=== PATIENT | male | born 1985 | race Caucasian/White ===

== ENCOUNTER 2017-03-25 00:26 | Emergency (ER) | payer MEDICAID, OTHER, SELFPAY ==
[2017-03-25 01:20] LABS: CHLORIDE,CL 99 mmol/L (101-111); SODIUM,NA 136 mmol/L (135-145)
[2017-03-25 02:22] VITALS: BP 110/74
--- NOTE | 2017-03-25 02:42 | EDM.PDOC ---
ED HPI GENERAL MEDICAL PROBLEM - General Chief Complaint: Chest Pain Stated Complaint: CHEST PAIN, DIZZY, NAUSEOUS [id number] Time Seen by Provider: 03/25/17 00:45 Source of Information: Reports: Patient History Limitations: Reports: No Limitations - History of Present Illness INITIAL COMMENTS - FREE TEXT/NARRATIVE: c/o "chest pain" pointing epigastric area with radiation to left arm. C/o left arm numbness. Described it feeling colder than right Onset: Today Quality: Reports: Ache, Stabbing Severity: Moderate Associated Symptoms: Reports: Chest Pain. Denies: Cough, Diaphoresis Chest Pain Score (Numeric/FACES): 0 - Related Data Allergies Allergy/AdvReac Type Severity Reaction Status Date / Time sulfamethoxazole Allergy Cannot Verified 03/25/17 00:50 [From Bactrim] Remember trimethoprim [From Bactrim] Allergy Cannot Verified 03/25/17 00:50 Remember Home Meds: Home Meds Ranitidine HCl [Zantac 75] 75 mg PO ASDIRECTED 03/25/17 [History] guaiFENesin/Ephedrine HCl [Primatene Asthma] 1 tab PO ASDIRECTED PRN 03/25/17 [ History] Past Medical History - Past Health History Medical/Surgical History: Denies Medical/Surgical History Respiratory History: Reports: Asthma Gastrointestinal History: Reports: GERD Endocrine/Metabolic History: Reports: Obesity/BMI 30+ - Past Surgical History GI Surgical History: Reports: Appendectomy Social & Family History - Family History Family Medical History: Noncontributory - Tobacco Use Smoking Status *Q: Current Every Day Smoker Years of Tobacco use: 10 Packs/Tins Daily: 1.5 - Caffeine Use Caffeine Use: Reports: Soda - Alcohol Use Days Per Week of Alcohol Use: 0 - Recreational Drug Use Recreational Drug Use: Yes Drug Use in Last 12 Months: Yes Recreational Drug Type: Reports: Marijuana/Hashish Recreational Drug Use Frequency: Monthly - Living Situation & Occupation Living situation: Reports: , with Family Occupation: Employed ED ROS GENERAL - Review of Systems Review Of Systems: ROS reveals no pertinent complaints other than HPI. Constitutional: Denies: Diaphoresis HEENT: Reports: No Symptoms Respiratory: Reports: No Symptoms Cardiovascular: Reports: Chest Pain, Dyspnea on Exertion GI/Abdominal: Reports: Nausea : Reports: No Symptoms Musculoskeletal: Reports: No Symptoms Skin: Reports: No Symptoms Neurological: Reports: Paresthesia (c/o left arm feeling cold) ED EXAM, GENERAL - Physical Exam Exam: See Below Exam Limited By: No Limitations General Appearance: Alert, Anxious, Obese (morbid) Eye Exam: Bilateral Eye: EOMI Ears: Normal External Exam Nose: Normal Inspection Throat/Mouth: Normal Inspection, Normal Lips, Normal Voice Head: Atraumatic, Normocephalic Respiratory/Chest: No Respiratory Distress, Wheezing (fine expiratory on right clear with deep breath) Cardiovascular: Normal Peripheral Pulses, Regular Rate, Rhythm Peripheral Pulses: 2+: Brachial (L), Brachial (R), Radial (L), Radial (R) GI/Abdominal: Normal Bowel Sounds, Soft, Tender (epigastric) Extremities: Normal Inspection, Normal Range of Motion, Non-Tender. No: Arm Pain, Increased Warmth, Mottled, Pallor, Redness Neurological: Alert, Oriented, CN II-XII Intact, Normal Cognition, Normal Reflexes, No Motor/Sensory Deficits. No: Sensory/Motor Deficit Psychiatric: Anxious Skin Exam: Warm, Dry, Intact, Normal Color Course - Vital Signs Last Recorded V/S: Last Vital Signs Temp 97.3 F 03/25/17 02:21 Pulse 100 03/25/17 02:21 Resp 14 03/25/17 02:21 BP 110/74 03/25/17 02:21 Pulse Ox 95 03/25/17 01:40 - Orders/Labs/Meds Labs: Laboratory Tests 03/25/17 03/25/17 Range/Units 00:35 00:35 WBC 10.9 H (5.0-10.0) 10^3/uL RBC 5.14 (4.6-6.2) 10^6/uL Hgb 16.0 (14.0-18.0) g/dL Hct 46.8 (40.0-54.0) % MCV 91.1 (80-100) fL MCH 31.1 (27.0-34.0) pg MCHC 34.2 (33.0-35.0) g/dL Plt Count 237 D (150-450) 10^3/uL Neut % (Auto) 59.5 (42.2-75.2) % Lymph % (Auto) 27.1 (20.5-50.1) % [place] % (Auto) 10.5 H (2-8) % Eos % (Auto) 2.5 (1.0-3.0) % Baso % (Auto) 0.4 (0.0-1.0) % Sodium 136 (135-145) mmol/L Potassium 4.4 (3.6-5.0) mmol/L Chloride 99 L (101-111) mmol/L Carbon Dioxide 27.0 (21.0-31.0) mmol/L Anion Gap 14.4 BUN 18 (7-18) mg/dL Creatinine 0.9 (0.6-1.3) mg/dL Est Cr Clr Drug Dosing 124.34 mL/min Estimated GFR (MDRD) > 60 BUN/Creatinine Ratio 20.00 Glucose 317 H (74-105) mg/dL Calcium 9.0 (8.4-10.2) mg/dl Total Bilirubin 0.5 (0.2-1.0) mg/dL AST 39 (10-42) IU/L ALT 45 (10-60) IU/L Alkaline Phosphatase 53 (42-121) IU/L Creatine Kinase 181 H (26-174) IU/L Troponin I < 0.02 (0.00-0.02) ng/ml Total Protein 7.3 (6.7-8.2) g/dl Albumin 3.8 (3.2-5.5) g/dl Globulin 3.5 Albumin/Globulin Ratio 1.09 Departure - Departure Time of Disposition: 02:32 Disposition: Home, Self-Care 01 Condition: Good Clinical Impression: Non-cardiac chest pain Instructions: Nonspecific Chest Pain, [id number] Referrals: PCP,Unobtain [Primary Care Provider] - Forms: ED Department Discharge Additional Instructions: rest follow up in clinic next week to recheck elevated blood sugar bland diet omeprazole 20mg daily on empty stomach
--- NOTE | 2017-03-25 10:32 | EKG ---
03/25/2017 - JOHN GONZALEZ P - TIME: 00:34 a.m. EKG shows sinus tachycardia. Nonspecific ST-segment abnormality. [facility] /[id number]
== END 2017-03-25 02:47 | disposition home or self-care (01) ==
LOC: DL.ED 00:26
DX: R07.89 Other chest pain (principal); F17.210 Nicotine dependence, cigarettes, uncomplicated; Z88.1 Allergy status to other antibiotic agents; Z88.2 Allergy status to sulfonamides
CPT/HCPCS: 36415; 70450; 71010; 80053; 82550; 84484; 85025; 93005; 93010; 99283; 99285

== ENCOUNTER → 2017-05-07 | Day surgery (SDC) | payer MEDICAID ==
[~2017-05-07] MED LIST: Ketorolac 30 MG/ML SDV IVPUSH ONE; Lactated Ringers 1,000 ML IV SCH; Lidocaine 1% 30 ML SDV INJECT ONE; Lidocaine 1% 30 ML SDV ONE; Midazolam 1 MG/ML 2 ML SDV IV ONE; Propofol 200 MG/20 ML SDV IV ONE; fentaNYL 100 MCG/2 ML SDV IV ONE
--- NOTE | 2017-05-07 15:13 | HP ---
INTRODUCTION: This 32-year-old male was consulted by me in the [facility] for evaluation of a week-long history of an abscess in the right groin. This has been spontaneously draining and quite foul smelling. He has marked erythema around the groin down into the scrotum in the medial part of the thigh. He has a fever of 102 and feels fairly sick with this. ALLERGIES: The patient has allergies to Bactrim. MEDICATIONS: Current medications are asthma medications, Primatene inhaler which he uses daily. FAMILY HISTORY AND SOCIAL HISTORY: The patient does smoke. Currently, he is not working. He is single. REVIEW OF SYSTEMS: Positive for asthma, otherwise, all other systems are negative. PHYSICAL EXAMINATION: HEENT: Normal. Chest: Lungs are clear bilaterally. Heart: Normal sinus rhythm. Abdomen: Morbidly obese. This patient's BMI is approximately 40. Pelvic: The right groin shows some necrotic skin in the groin area just above the pannus thigh crease with some spontaneously draining pus. Extremities: There is some surrounding erythema in the thigh. Extremities are, otherwise, normal. Neurologic: Intact. ASSESSMENT: Right groin abscess. PLAN: I discussed the risks, benefits, and expected outcomes of draining this in the operating room. This is way too large to be able to do locally or in the emergency room. The patient is n.p.o. and will currently be taken to the operating room. The skin will be left open and packed with him returning daily for dressing changes. [facility] /[id number]
--- NOTE | 2017-05-07 16:22 | OR ---
DATE: 05/07/2017 PREOPERATIVE DIAGNOSIS: Right groin abscess. POSTOPERATIVE DIAGNOSIS: Right groin abscess. PROCEDURE: Incision and drainage of right groin abscess. ANESTHESIA: Local plus MAC. SPECIMEN: None. INDICATION FOR PROCEDURE: This 32-year-old male has had a groin abscess over the last week. It is spontaneously draining purulent pus which is quite foul smelling. The patient has a fever and generally feels sick. He has moderate amount of surrounding erythema down into the scrotum and thigh. OPERATIVE FINDINGS: Loculated abscess cavity in the groin. PROCEDURE IN DETAIL: After adequate preparation, 1% Xylocaine was used to infiltrate an area around an obvious necrotic scab site in the right groin. The scab site was opened but I did get really a lot of pus out of this area. I did widen the skin incision some and this just turns out to be necrotic tissue. However, there is a draining sinus tract right in the crease of the groin where the leg and pannus meet. Lidocaine was used to infiltrate the skin and this was opened for about an inch and a half. This did return a moderate amount of purulent material through this. Digitally I was able to break up any of the loculations and irrigated this clear. Both of these wound sites were then packed with 4 x 4 gauze pad and will be changed in 24 hours. [facility] /[id number]
[2017-05-07 16:43] VITALS: BP 125/72
== END ==
LOC: DL.SDS 14:11
PROVIDERS: ATTEND Surgery
DX: L02.214 Cutaneous abscess of groin (principal); F17.200 Nicotine dependence, unspecified, uncomplicated; J45.909 Unspecified asthma, uncomplicated; Z88.1 Allergy status to other antibiotic agents
CPT/HCPCS: 00400; 10060; 82962; J1885; J2250; J2704; J3010; J7120; 10061; 99203

== ENCOUNTER 2021-02-23 10:25 | Emergency (ER) | payer SELFPAY ==
[2021-02-23 10:40] VITALS: BP 143/96; PULSE 106
[2021-02-23] MEDS ORDERED: Ibuprofen 600 MG Tab PO ONE (11:01)
[2021-02-23] MEDS ORDERED: Baclofen 10 MG Tab PO ONE (11:01)
[2021-02-23 11:31] LABS: ANION GAP 19.4 mEq/L (7-13); CHLORIDE,CL 97 mmol/L (98-107); SODIUM,NA 136 mmol/L (136-145)
--- NOTE | 2021-02-23 11:43 | EDM.PDOC ---
Scribed by Brittnee Bowman 02/23/21 1143 for Yasmeen Browne MD ED HPI GENERAL MEDICAL PROBLEM - General Chief Complaint: Lower Extremity Injury/Pain Stated Complaint: [id number] SHOOTING PAIN FROM ANKLE TO HIP Time Seen by Provider: 02/23/21 10:37 Source of Information: Reports: Patient, RN, RN Notes Reviewed History Limitations: Reports: No Limitations - History of Present Illness INITIAL COMMENTS - FREE TEXT/NARRATIVE: Patient is here for left calf and leg pain. He notes that it started this morning when he woke up with pain his calf. Throughout the day the pain has started to radiate up to his knee into his butt. 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 No injury or trauma to the leg. No known insect bites. No history of clotting disorder. Never injured that leg before. No numbness or tingling in his foot. He was going to continue to work through it but his boss made him come in. Onset: Today Duration: Constant Location: Reports: Lower Extremity, Left Quality: Reports: Ache Severity: Moderate Improves with: Reports: None Worsens with: Reports: None Associated Symptoms: Reports: No Other Symptoms left leg Pain Score (Numeric/FACES): 8 - Related Data Allergies Allergy/AdvReac Type Severity Reaction Status Date / Time sulfamethoxazole Allergy Cannot Verified 02/23/21 10:40 [From Bactrim] Remember trimethoprim [From Bactrim] Allergy Cannot Verified 02/23/21 10:40 Remember Home Meds: Home Meds guaiFENesin/Ephedrine HCl [Primatene Asthma] 1 tab PO ASDIRECTED PRN 03/25/17 [History] EPINEPHrine [Primatene Mist] 2 puff IH Q6H PRN 02/23/21 [History] Past Medical History - Past Health History Medical/Surgical History: Denies Medical/Surgical History Respiratory History: Reports: Asthma Gastrointestinal History: Reports: GERD Endocrine/Metabolic History: Reports: Obesity/BMI 30+ - Infectious Disease History Infectious Disease History: Reports: Chicken Pox - Past Surgical History GI Surgical History: Reports: Appendectomy Social & Family History - Family History Family Medical History: No Pertinent Family History - Caffeine Use Caffeine Use: Reports: Soda - Living Situation & Occupation Living situation: Reports: , with Family Occupation: Employed Review of Systems - Review of Systems Review Of Systems: Comprehensive ROS is negative, except as noted in HPI. ED EXAM, GENERAL - Physical Exam Exam: See Below Exam Limited By: No Limitations General Appearance: Alert, WD/WN, No Apparent Distress Eye Exam: Bilateral Eye: EOMI, Normal Inspection, PERRL Ears: Normal External Exam, Normal Canal, Hearing Grossly Normal, Normal TMs Nose: Normal Inspection, Normal Mucosa, No Blood Throat/Mouth: Normal Inspection, Normal Lips, Normal Teeth, Normal Gums, Normal Oropharynx, Normal Voice, No Airway Compromise Head: Atraumatic, Normocephalic Neck: Normal Inspection, Supple, Non-Tender, Full Range of Motion Respiratory/Chest: No Respiratory Distress, Lungs Clear, Normal Breath Sounds, No Accessory Muscle Use, Chest Non-Tender Cardiovascular: Normal Peripheral Pulses, Regular Rate, Rhythm, No Edema, No Gallop, No JVD, No Murmur, No Rub GI/Abdominal: Normal Bowel Sounds, Soft, Non-Tender, No Organomegaly, No Distention, No Abnormal Bruit, No Mass (Male) Exam: Deferred Rectal (Males) Exam: Deferred Back Exam: Normal Inspection, Full Range of Motion, NT Extremities: Other (left calf with moderate to severe muscle spasms and moderate swelling. Normal sensation. Decreased ability to dorsi and plantar flex secondary to pain. Tender to palpation in posterior knee with mild swelling. Normal pedal pulses. Normal capillary refill. ) Neurological: Alert, Oriented, CN II-XII Intact, Normal Cognition, Normal Gait, Normal Reflexes, No Motor/Sensory Deficits Psychiatric: Normal Affect, Normal Mood Skin Exam: Warm, Dry, Intact, No Rash, Other Course - Vital Signs Last Recorded V/S: Last Vital Signs Temp 98.1 F 02/23/21 10:35 Pulse 106 H 02/23/21 10:35 Resp 20 02/23/21 10:35 BP 143/96 H 02/23/21 10:35 Pulse Ox 94 L 02/23/21 10:35 - Orders/Labs/Meds Labs: Laboratory Tests 02/23/21 02/23/21 02/23/21 Range/Units 11:07 11:07 11:07 WBC 9.8 (5.0-10.0) 10^3/uL RBC 5.55 (4.6-6.2) 10^6/uL Hgb 17.4 (14.0-18.0) g/dL Hct 49.6 (40.0-54.0) % MCV 89.4 (80-100) fL MCH 31.4 (27.0-34.0) pg MCHC 35.1 H (33.0-35.0) g/dL Plt Count 230 (150-450) 10^3/uL Neut % (Auto) 55.5 (42.2-75.2) % Lymph % (Auto) 32.4 (20.5-50.1) % [place] % (Auto) 9.5 H (2-8) % Eos % (Auto) 2.3 (1.0-3.0) % Baso % (Auto) 0.3 (0.0-1.0) % D-Dimer, Quantitative 268 (0-400) ng/mL Sodium 136 (136-145) mmol/L Potassium 4.4 (3.5-5.1) mmol/L Chloride 97 L (98-107) mmol/L Carbon Dioxide 24 (21-32) mmol/L Anion Gap 19.4 H (7-13) mEq/L BUN 13 (7-18) mg/dL Creatinine 0.97 (0.70-1.30) mg/dL Est Cr Clr Drug Dosing 111.05 mL/min Estimated GFR (MDRD) > 60 BUN/Creatinine Ratio 13.4 (No establ ref range) Glucose 379 H (70-99) mg/dL Calcium 9.1 (8.5-10.1) mg/dL Total Bilirubin 0.5 (0.2-1.0) mg/dL AST 19 (15-37) U/L ALT 36 (16-63) U/L Alkaline Phosphatase 83 (46-116) U/L Total Protein 7.5 (6.4-8.2) g/dL Albumin 3.7 (3.4-5.0) g/dL Globulin 3.8 Albumin/Globulin Ratio 1.0 Meds: Medications Discontinued Medications Generic Name Dose Route Start Last Admin Trade Name Freq PRN Reason Stop Dose Admin Baclofen 10 mg 02/23/21 11:01 02/23/21 11:16 Baclofen 10 Mg Tab PO 02/23/21 11:02 10 mg ONETIME ONE Administration Ibuprofen 600 mg 02/23/21 11:01 02/23/21 11:16 Ibuprofen 600 Mg Tab PO 02/23/21 11:02 600 mg ONETIME ONE Administration - Re-Assessments/Exams Free Text/Narrative Re-Assessment/Exam: Reviewed labs with patient. Reassured negative d-dimer and discussed elevated glucose level. Encouraged to follow up with primary care provider to discuss elevated glucose and further testing/treatment for possible diabetes. Pt adwoa balized understanding. 02/23/21 11:41 Departure - Departure Time of Disposition: 11:39 Disposition: Home, Self-Care 01 Condition: Good Clinical Impression: Muscle spasm of left calf, Elevated glucose level - Discharge Information *PRESCRIPTION DRUG MONITORING PROGRAM REVIEWED*: Not Applicable *COPY OF PRESCRIPTION DRUG MONITORING REPORT IN PATIENT [place]: Not Applicable Instructions: Muscle Cramps and Spasms, [id number], Hyperglycemia, [id number] Forms: ED Department Discharge Additional Instructions: Baclofen three times daily as needed for spasms Ibuprofen and ice therapy as needed for pain and swelling. heat and massage to help loosen the spasm Follow up with a primary care provider on Thursday to discuss elevated glucose reading and further testing. Sepsis Event Note (ED) - Focused Exam Vital Signs: Vital Signs Temp Pulse Resp BP Pulse Ox 02/23/21 10:35 98.1 F 106 H 20 143/96 H 94 L I have read and agree with the documentation that has been completed regarding this visit. By signing this record, I attest that the documentation was completed in my physical presence and is an accurate record of the encounter.
== END 2021-02-23 11:53 | disposition home or self-care (01) ==
LOC: DL.ED 10:25
DX: M62.838 Other muscle spasm (principal); R73.9 Hyperglycemia, unspecified; E66.9 Obesity, unspecified; Z88.1 Allergy status to other antibiotic agents; Z68.41 Body mass index [BMI] 40.0-44.9, adult
CPT/HCPCS: 36415; 80053; 85025; 85379; 99283; A9270

== ENCOUNTER 2023-08-14 01:07 | Emergency (ER) | payer SELFPAY ==
[2023-08-14] MEDS: Sodium Chloride 0.9% 10 ML Syringe FLUSH PRN (01:27)
[2023-08-14 01:31] LABS: BASOPHILS PERCENT AUTO 0.3 % (0.0-1.0); EOSINOPHILS PERCENT AUTO 2.2 % (1.0-3.0); HEMATOCRIT 48.6 % (40.0-54.0); HEMOGLOBIN 16.9 g/dL (14.0-18.0); LYMPHOCYTES PERCENT AUTO 39.8 % (20.5-50.1); MEAN CORPUSCULAR HEMOGLOBIN 31.2 pg (27.0-34.0); MEAN CORPUSCULAR HGB CONC 34.8 g/dL (33.0-35.0); MEAN CORPUSCULAR VOLUME 89.7 fL (80-100); MONOCYTES PERCENT AUTO 11.2 % (2-8); NEUTROPHILS PERCENT AUTO 46.5 % (42.2-75.2); PLATELET COUNT,PLT 256 10^3/uL (150-450); RED BLOOD CELL COUNT 5.42 10^6/uL (4.6-6.2); WHITE BLOOD CELL COUNT,WBC 10.9 10^3/uL (5.0-10.0)
[2023-08-14 01:53] LABS: A/G RATIO 0.9; ALBUMIN 3.5 g/dL (3.4-5.0); BILIRUBIN TOTAL 0.4 mg/dL (0.2-1.0); CALCIUM 9.1 mg/dL (8.5-10.1); CREATININE 1.07 mg/dL (0.70-1.30); EST CRCL DRUG DOSING (CG) 98.72 mL/min; MAGNESIUM 1.8 mg/dL (1.8-2.4); PROTEIN TOTAL,TP 7.3 g/dL (6.4-8.2)
[2023-08-14 02:07] LABS: INR 0.9 (0.9-1.2); PROTHROMBIN TIME 9.7 SEC (9.0-12.0); PTT,PARTIAL THROMBOPLSTIN TIME 23.9 SEC (22.0-34.0)
[2023-08-14] MEDS: Azithromycin 250 MG Tab PO ONE (02:10)
[2023-08-14] MEDS: predniSONE 20 MG Tab PO ONE (02:10)
[2023-08-14 02:17] LABS: POTASSIUM,K 4.1 mmol/L (3.5-5.1)
[2023-08-14 02:22] VITALS: BP 116/94; PULSE 97
== END 2023-08-14 02:18 | disposition home or self-care (01) ==
LOC: DL.ED 01:07
DX: J98.8 Other specified respiratory disorders (principal); R73.9 Hyperglycemia, unspecified; J45.909 Unspecified asthma, uncomplicated; E66.9 Obesity, unspecified; F17.210 Nicotine dependence, cigarettes, uncomplicated; Z88.2 Allergy status to sulfonamides; Z79.899 Other long term (current) drug therapy; Z86.16 Personal history of COVID-19; Z68.38 Body mass index [BMI] 38.0-38.9, adult
CPT/HCPCS: 36415; 71045; 80053; 83735; 84484; 85025; 85610; 85730; 93005; 93010; 99284; 99285; A9270; J7512; J3490